=== PATIENT | female | born 1965 | race Caucasian/White ===

== ENCOUNTER 2018-12-17 08:36 | Day surgery (SDC) | payer OTHER ==
[2018-12-16 13:49] VITALS: BMI 26.6
[2018-12-17] MEDS ORDERED: ceFAZolin SODIUM 1 GM VIAL ONE (08:58)
[2018-12-17] MEDS ORDERED: MIDAZOLAM HCL 2 MG/2 ML SINGLE DOSE VIAL ONE (08:58)
[2018-12-17] MEDS ORDERED: DEXAMETHASONE SOD PHOSPHATE 4 MG/1 ML VIAL ONE (08:58)
[2018-12-17] MEDS ORDERED: SODIUM CHLORIDE 0.9% P/F 10 ML VIAL IJ ONE (08:58)
[2018-12-17] MEDS ORDERED: KETAMINE HCL 200 MG/20 ML VIAL ONE (08:58)
[2018-12-17] MEDS ORDERED: LIDOCAINE HCL/PF 2% SDV 5ML VIAL ONE (08:58)
[2018-12-17] MEDS ORDERED: ROCURONIUM BROMIDE 50 MG/5 ML VIAL ONE (08:58)
[2018-12-17] MEDS ORDERED: ONDANSETRON 4 MG/2 ML VIAL IVPUSH PRN (09:04)
[2018-12-17] MEDS ORDERED: oxyCODONE HCL 5 MG TABLET PO PRN ×2 (09:04)
[2018-12-17] MEDS ORDERED: LACTATED RINGERS SOLUTION 1,000 ML IV SCH (09:15)
--- NOTE | 2018-12-17 09:32 | HP ---
History & Physical Update - History History: No Change - Physical Physical: No Change - Assessment Assessment: No Change - Plan Plan: No Change (Intitial H&P is complete and accurate 11/23/18. No new complaints or medications.)
[2018-12-17] MEDS ORDERED: LIDOCAINE 1%-EPI 1:100,000 30 ML MDV IJ ONE (09:37)
[2018-12-17] MEDS ORDERED: EPINEPHrine/PF 1 MG/1 ML (1:1,000) AMPULE ONE ×2 (09:37→10:30)
[2018-12-17] MEDS ORDERED: LIDOCAINE HCL 1%, 10 MG/ML (20ML VIAL) ONE ×2 (09:37→10:30)
[2018-12-17] MEDS ORDERED: ceFAZolin SODIUM 1 GM VIAL IVPB ONE (10:01)
[2018-12-17] MEDS ORDERED: ePHEDrine SULFATE 50 MG/1 ML AMPULE ONE (10:23)
[2018-12-17] MEDS ORDERED: LIDOCAINE 1%/EPI 1:100000 (50 ML MULTI DOSE VIAL) NR ONE (10:58)
[2018-12-17] MEDS ORDERED: ACETAMINOPHEN 1000 MG/100 ML VIAL (NON FORMULARY) IVPB ONE (12:45)
[2018-12-17 15:24] VITALS: PULSE 100; TEMP 98
[2018-12-17] MEDS ORDERED: oxyCODONE HCL 5 MG TABLET PO ONE (15:59)
[2018-12-17] MEDS ORDERED: oxyCODONE HCL 5 MG TABLET ONE (16:02)
[2018-12-17 16:55] VITALS: BP 94/53
--- NOTE | 2018-12-18 16:56 | OP ---
DATE OF OPERATION: 12/17/2018 SURGEON: Katie Antony MD CO-SURGEON: Javier Florian MD PREOPERATIVE DIAGNOSES: 1. Bilateral acquired chest wall deformity status post bilateral mastectomy for breast cancer. 2. Asymmetry of reconstructed chest wall. 3. History of breast carcinoma and mechanical complication of breast implants. POSTOPERATIVE DIAGNOSES: 1. Bilateral acquired chest wall deformity status post bilateral mastectomy for breast cancer. 2. Asymmetry of reconstructed chest wall. 3. History of breast carcinoma and mechanical complication of breast implants. OPERATIVE PROCEDURE: 1. Right breast reconstruction utilizing other technique. 2. Left breast reconstruction utilizing other technique. 3. Tissue rearrangement and flap advancement right and left breast. OPERATIVE INDICATION: Patient is a woman who underwent multiple previous procedures after bilateral mastectomy with gross deformity and complications with her previous breasts implants. The patient underwent previous flap reconstruction now as brought back to the operating room for multiple rearrangements of the tissue for symmetry. The risks and benefits of surgical versus nonsurgical alternatives as well as the material complications were described to the patient on multiple occasions preoperatively by both myself and Dr. Florian who performed co-surgery independently not helping each other to facilitate the operation. All questions were asked and answered. The patient was marked in the standing position preoperatively. OPERATIVE PROCEDURE IN DETAIL: The patient was taken to the operating room. After induction of general anesthesia in the supine position, both arms were extended and padded. Venodyne boots were placed. The entire chest wall, abdomen, flanks, and hips were prepped with ChloraPrep solution over their entire extent. At this time, after placement of sterile drapes and timeout, attention was turned to the mastectomy scars. These were injected with 1% local lidocaine anesthesia with 1:100,000 epinephrine along the previous mastectomy scars and circumferentially around the flap area which needed to be revised because of deformity. After topical anesthesia and hemostasis, the abdominal area was also prepped and draped and injected with dilute epinephrine solution. At this point, attention was turned to the right breast mastectomy scar. Dr. Florian and I began the operation separately and not helping each other worked as co-surgeons to facilitate the procedure. He will dictate under separate cover. At this point, an incision was made down through the skin into the subcutaneous tissue in the right breast through the subcutaneous down to the underlying flap area. Areas were deepithelialized along the previous flap deformity, and the tissues elevated into new anatomic positions. The deformity was rectified by advancing the flap into its new position on the right breast. The medial portion of the flap and scar were excised, deepithelialized, and buried into the deep tissue. The left breast incisions were made along the inframammary fold and then deepened down through the subcutaneous tissue down to the anterior chest wall. Dissection was carried inferiorly along the chest wall elevating the previous thoracodorsal liquor store manager flap into its new position elevating off the chest wall laterally and advancing it medially. At this point, incisions were made in the abdominal area for harvest of reconstructive tissue. The tissue incision was carried down through the skin into the subcutaneous tissue, over the rectus muscle and external oblique laterally. Tissue was then harvested from these areas in the upper and lower abdominal area over the rectus fascia and laterally along the external oblique fascia into the flank. This tissue was washed, cleansed, prepared, and transferred to the back table. Once this was accomplished, attention was turned back to the breast. The left breast flap was rotated into position medially and superiorly elevating the lateral and inframammary fold. Using multiple 2-0 Vicryl sutures, the flap was tacked into position superiorly, and then the lower abdominal skin flap was advanced and closed upon itself using 0 V-Loc suture in a running fascia along the inframammary fold. Multiple deep bites of the suture tacking it down to the chest wall and periosteal area of the rib were carried out in order to raise the flap into a more superior and medial position. Once this was accomplished, hemostasis was meticulously obtained throughout both pockets and copious irrigation as performed. At this point, attention was turned back to the right and left breast. The tissue, which had been harvested, was transferred to the right breast in the superior, medial, central, and inferior portions of the right breast, and then independently into the superior, medial, central, and inferior portions of the left breast. Good shape and contour were seen in the sitting position. The flaps were advanced and closed upon themselves using multiple interrupted sutures and then multiple running sutures with 4-0 V-Loc suture. Good shape and contour were then seen at this procedure. The donor site was closed with interrupted running sutures, and the tissues were approximated superficially using the V-Loc suture, Dermabond dressing, and Steri-Strips for compression. The patient was awakened, placed into a Surgi-Bra and an abdominal binder. She was transferred to the recovery room in satisfactory condition. DAPHNE ANTONY M.D. DONAVON/[id number]
--- NOTE | 2018-12-18 17:34 | PATH ---
Surgical Pathology Report Patient Name: SANTOSH CHIRINOS [facility]. Rec. #: [id number] /Age/Gender: 1965 (Age: 53) / F Account: [id number] Location: [facility] Taken: 12/17/2018 Received: 12/17/2018 Reported: 12/18/2018 Physicians: Wayne Antony Specimen(s) Received RIGHT BREAST TISSUE Clinical History History of breast cancer Final Diagnosis 'BREAST' TISSUE, RIGHT, EXCISION: SKIN WITH DERMAL FIBROSIS CONSISTENT WITH SCAR. Electronically Signed Bhumika Frankel M.D. Gross Description Received in formalin labeled "right breast tissue," are 4 steve, unoriented skin fragments ranging from 2.0 x 0.9 cm to 15.0 x 0.6 cm. The epidermal surface of the largest portion displays a central, linear, well-healed scar. No discrete masses are identified. Tribal Judge sections are submitted in one cassette. /12/17/2018 saudi/12/17/2018
== END 2018-12-17 16:40 | disposition home or self-care (01) ==
LOC: JASU-SURG 08:36
PROVIDERS: ATTEND Plastic Surgery
PROC: 0JX60ZC Transfer Chest Subcutaneous Tissue and Fascia with Skin, Subcutaneous Tissue and Fascia, Open Approach (ICD-10-PCS; 2018-12-17)
PROC: 0HRV07Z Replacement of Bilateral Breast with Autologous Tissue Substitute, Open Approach (ICD-10-PCS; principal; 2018-12-17 10:00)
DX: M95.4 Acquired deformity of chest and rib (principal); Z85.3 Personal history of malignant neoplasm of breast; Z90.13 Acquired absence of bilateral breasts and nipples; N65.1 Disproportion of reconstructed breast; T85.41XA Breakdown (mechanical) of breast prosthesis and implant, initial encounter; Y83.8 Other surgical procedures as the cause of abnormal reaction of the patient, or of later complication, without mention of misadventure at the time of the procedure; Y92.89 Other specified places as the place of occurrence of the external cause
CPT/HCPCS: 88304-TC; 94760